=== PATIENT | male | born 1975 | race Hispanic/Latino ===

== ENCOUNTER 2021-09-15 11:26 | Emergency (ER) | payer OTHER ==
[~2021-09-15] VITALS: Ht 167.6 cm; Wt 82.5 kg
== END 2021-09-15 14:35 | disposition home or self-care (01) ==
LOC: ED 11:26
DX: S00.83XA Contusion of other part of head, initial encounter (principal); R07.89 Other chest pain; M54.2 Cervicalgia; Y04.8XXA Assault by other bodily force, initial encounter
CPT/HCPCS: 70450; 70486; 70491; 71045; 72125; 99284-25